=== PATIENT | female | born 1995 | race Two or more races ===

== ENCOUNTER 2020-03-02 11:06 | Inpatient (IN) | payer MEDICAID ==
[2020-03-02] MEDS ORDERED: Lidocaine 1% 50 ML MDV INJECT PRN (13:28)
[2020-03-02] MEDS ORDERED: Carboprost Tromethamine 250 MCG/1 ML Amp IM PRN (13:28)
[2020-03-02] MEDS ORDERED: Water For Irrigation,Sterile 1,000 ML Container IRR PRN (13:28)
[2020-03-02] MEDS ORDERED: Tranexamic Acid 1,000 MG in Sodium Chloride 0.9% 100 ML IV PRN (13:28)
[2020-03-02] MEDS ORDERED: Butorphanol 1 MG/ML SDV IVPUSH PRN (13:28)
[2020-03-02] MEDS ORDERED: Nalbuphine 10 MG/1 ML Vial IVPUSH PRN (13:28)
[2020-03-02] MEDS ORDERED: Sodium Chloride 0.9% 2.5 ML Syringe FLUSH PRN (13:28)
[2020-03-02] MEDS ORDERED: Sodium Chloride 0.9% 10 ML SDV IV PRN (13:28)
[2020-03-02] MEDS ORDERED: Methylergonovine 0.2 MG/1 ML Amp IM PRN (13:28)
[2020-03-02] MEDS ORDERED: Misoprostol 200 MCG Tab PO PRN (13:28)
[2020-03-02] MEDS ORDERED: Sodium Chloride 0.9% 10 ML Syringe FLUSH PRN (13:28)
[2020-03-02] MEDS ORDERED: Oxytocin/0.9 % Sodium Chloride 30 UNIT/500 ML BAG IV SCH (13:30)
[2020-03-02] MEDS ORDERED: Terbutaline 1 MG/ML SDV SUBCUT PRN (14:14)
[2020-03-02] MEDS: Lactated Ringers 1,000 ML IV SCH ×2 (15:15→17:15)
[2020-03-02] MEDS: Misoprostol 25 MCG (1/4 of 100 MCG) Tab VAG PRN ×2 (16:08→22:08)
[2020-03-03] MEDS ORDERED: Witch Hazel Medicated Pads 40/Jar TOP PRN (03:37)
[2020-03-03] MEDS ORDERED: Docusate Sodium 100 MG Cap PO PRN (03:37)
[2020-03-03] MEDS ORDERED: Lanolin 100% Cream 7 GM Tube TOP PRN (03:37)
[2020-03-03] MEDS ORDERED: Benzocaine/Menthol 20%-0.5% Spray 78 GM Cannister TOP PRN (03:37)
[2020-03-03] MEDS ORDERED: Tranexamic Acid 1,000 MG in Sodium Chloride 0.9% 100 ML IV PRN (03:37)
[2020-03-03] MEDS ORDERED: Methylergonovine 0.2 MG/1 ML Amp IM PRN (03:37)
[2020-03-03] MEDS ORDERED: Ibuprofen 400 MG Tab PO PRN (03:37)
[2020-03-03] MEDS ORDERED: Acetaminophen 500 MG Tab PO PRN ×2 (03:37)
[2020-03-03] MEDS ORDERED: Bisacodyl 10 MG Supp RECTAL PRN (03:37)
--- NOTE | 2020-03-03 03:44 | PCM.OPNOTE ---
- General Post-Op/Procedure Note Date of Surgery/Procedure: 03/03/20 Operative Procedure(s): TSVD, repair of vaginal laceration Findings: Liveborn female 9/10 3970 grams, vaginal laceration, placenta spontaneous Schultze intact with 3 vessels. Pre Op Diagnosis: 38 4/7 weeks, PROM with induction Post-Op Diagnosis: Same Anesthesia Technique: Local Primary Surgeon: Sandra Malloy Pathology: none EBL in mLs: 200 Complications: None Known Condition: Good
--- NOTE | 2020-03-03 04:47 | OR ---
SURGEON: Sandra Malloy M.D. DATE OF PROCEDURE: 03/03/2020 PREOPERATIVE DIAGNOSES: 1. A 38-5/7-week intrauterine . 2. Premature rupture of membranes. POSTOPERATIVE DIAGNOSES: 1. A 38-5/7-week intrauterine . 2. Premature rupture of membranes. PROCEDURES: 1. Cytotec induction of labor. 2. Term spontaneous vaginal delivery. 3. Repair of a vaginal laceration. PRIMARY SURGEON: Sandra Malloy M.D. ANESTHESIA: Local. ESTIMATED BLOOD LOSS: Less than 200 mL. FINDINGS: A liveborn male, scores 9 and 10, weighing 3970 g. Placenta spontaneous, Schultze intact, with 3 vessels. A small vaginal laceration was repaired. COMPLICATIONS: None known. DISPOSITION: Mother and baby are in LDR in good condition. BRIEF HISTORY: This is a 24-year-old female, G1, P0. She presents with spontaneous rupture of membranes on 03/01/2020 at approximately noon. She presented to Labor and Delivery. She was confirmed to have spontaneous rupture of membranes. The cervix was closed. She received 2 doses of Cytotec. She was known to be group B strep negative. She remained afebrile throughout labor. She had category I heart tones throughout labor. She progressed to complete. DESCRIPTION OF PROCEDURE: With the patient in dorsal lithotomy position, the patient pushed over a 45- minute time period to a 5+ station, at which time the head was delivered spontaneously and atraumatically over the perineum with support with subsequent delivery of the infant's shoulders and body with minimal difficulty. However, the patient was placed in supine position. Breann maneuver and suprapubic pressure were applied. With this, from head to shoulder, delivery was less than 30 seconds. The was placed on the mother's abdomen and stimulated. The infant was a liveborn male, scores of 9 and 10, weighing 3970 g. After 2 minutes, the cord was doubly clamped and cut. Cord blood was collected for cord ABGs as well as routine cord blood sampling. Pitocin was initiated after delivery of the to assist with delivery of the placenta, which was delivered spontaneously, Schultze intact, with 3 vessels. Upon inspection of the pelvis and perineum, there were no periurethral, cervical, rectal, or perineal lacerations. There was a small vaginal laceration at 6 o'clock. 10 mL of 1% lidocaine was instilled, and 3-0 Vicryl was utilized in a running locked fashion to reapproximate the vaginal tissue. Final sponge, needle, and instrument counts were correct. There were no known complications, and mother and baby remained in LDR in good condition. SANDRA BARAJAS /[id number]
[2020-03-03] MEDS: Ibuprofen 800 MG Tab PO PRN ×2 (05:00→16:02)
[2020-03-04] MEDS: Ibuprofen 800 MG Tab PO PRN (00:17)
--- NOTE | 2020-03-04 13:07 | PCM.PNPP ---
- General Info Date of Service: 03/04/20 Functional Status: Reports: Pain Controlled, Tolerating Diet, Ambulating, Urinating - Review of Systems General: Reports: No Symptoms HEENT: Reports: No Symptoms Pulmonary: Reports: No Symptoms Cardiovascular: Reports: No Symptoms Gastrointestinal: Reports: No Symptoms Genitourinary: Reports: No Symptoms Musculoskeletal: Reports: No Symptoms Skin: Reports: No Symptoms Neurological: Reports: No Symptoms Psychiatric: Reports: No Symptoms - General Info Date of Service: 03/04/20 - Patient Data Vital Signs - Most Recent: Last Vital Signs Temp 36.4 C 03/04/20 08:30 Pulse 60 03/04/20 08:30 Resp 16 03/04/20 08:30 BP 127/69 03/04/20 08:30 Pulse Ox 96 03/04/20 08:30 Weight - Most Recent: 83.007 kg Lab Results - Last 24 Hours: Laboratory Results - last 24 hr 03/04/20 Range/Units 05:50 Hgb 10.2 L (12.0-16.0) g/dL Hct 32.3 L (36.0-46.0) % Med Orders - Current: Current Medications Acetaminophen (Tylenol Extra Strength) 500 mg PO Q4H PRN PRN Reason: Pain Acetaminophen (Tylenol Extra Strength) 1,000 mg PO Q4H PRN PRN Reason: Pain Last Admin: 03/03/20 04:03 Dose: 1,000 mg Documented by: Benzocaine/Menthol (Dermoplast Pain Relief 20%-0.5% [place]) 78 gm TOP ASDIRECTED PRN PRN Reason: Perineal Comfort Measure Last Admin: 03/03/20 04:06 Dose: 1 canister Documented by: Bisacodyl (Dulcolax) 10 mg RECTAL ONETIME PRN PRN Reason: Constipation Docusate Sodium (Colace) 100 mg PO BID PRN PRN Reason: Constipation Last Admin: 03/03/20 04:05 Dose: 100 mg Documented by: Emollient Ointment (Lansinoh Hpa) 0 gm TOP ASDIRECTED PRN PRN Reason: Sore Nipples Last Admin: 03/03/20 04:05 Dose: 7 gm Documented by: Tranexamic Acid 1,000 mg/ (Sodium Chloride) 110 mls @ 660 mls/hr IV ONETIME PRN PRN Reason: Bleeding Ibuprofen (Motrin) 400 mg PO Q4H PRN PRN Reason: Pain Ibuprofen (Motrin) 800 mg PO Q6H PRN PRN Reason: Pain Last Admin: 03/04/20 00:17 Dose: 800 mg Documented by: Methylergonovine Maleate (Methergine) 0.2 mg IM ONETIME PRN PRN Reason: Excessive Vaginal Bleeding Witjorge Lakhaniel (Tucks) 1 pad TOP ASDIRECTED PRN PRN Reason: comfort care Last Admin: 03/03/20 04:06 Dose: 1 tub Documented by: Discontinued Medications Butorphanol Tartrate (Stadol) 1 mg IVPUSH Q1H PRN PRN Reason: Pain Last Admin: 03/02/20 19:38 Dose: 1 mg Documented by: Carboprost Tromethamine (Hemabate Ds) 250 mcg IM ASDIRECTED PRN PRN Reason: Post Hemorrhage Lactated Ringer's (Ringers, Lactated) 1,000 mls @ 150 mls/hr IV ASDIRECTED TIFFANY Last Admin: 03/02/20 17:15 Dose: 125 mls/hr Documented by: Oxytocin/Sodium Chloride (Oxytocin 30 Unit/500 Ml-Ns) 30 unit in 500 mls @ 999 mls/hr IV TITRATE [facility] Last Admin: 03/03/20 02:36 Dose: 999 mls/hr Documented by: Tranexamic Acid 1,000 mg/ (Sodium Chloride) 110 mls @ 660 mls/hr IV ONETIME PRN PRN Reason: Bleeding Lidocaine HCl (Xylocaine 1%) 50 ml INJECT ONETIME PRN PRN Reason: Laceration repair Last Admin: 03/03/20 02:40 Dose: 50 ml Documented by: Methylergonovine Maleate (Methergine) 0.2 mg IM ASDIRECTED PRN PRN Reason: Post Hemorrhage Misoprostol (Cytotec) 200 mcg PO ONETIME PRN PRN Reason: Post Hemorrhage Misoprostol (Cytotec) 25 mcg VAG Q6HR PRN PRN Reason: Cervical Ripening Last Admin: 03/02/20 22:08 Dose: 25 mcg Documented by: Nalbuphine HCl (Nubain) 10 mg IVPUSH Q1H PRN PRN Reason: Pain (severe 7-10) Sodium Chloride (Saline Flush) 10 ml FLUSH ASDIRECTED PRN PRN Reason: Keep Vein Open Sodium Chloride (Saline Flush) 2.5 ml FLUSH ASDIRECTED PRN PRN Reason: Keep Vein Open Sodium Chloride (Normal Saline) 10 ml IV ASDIRECTED PRN PRN Reason: IV Use Sterile Water (Sterile Water For Irrigation) 1,000 ml IRR ASDIRECTED PRN PRN Reason: delivery Terbutaline Sulfate (Brethine) 0.25 mg SUBCUT ASDIRECTED PRN PRN Reason: Tacysystole - Infant Interaction Disposition, : in Room with Family Feeding: Breastfed Infant; Nursed Well Support Person: Significant Other - Recovery Exam Fundal Tone: Firm Fundal Level: 1 Fingerbreadths Below Umbilicus Fundal Placement: Right Lochia Amount: Scant Lochia Color: Rubra/Red Perineum Description: Edematous Other Perinuem Description: Vaginal tear Episiotomy/Laceration: None Bladder Status: Voiding Urinary Elimination: Voided - Exam General: Alert, Oriented Neck: Supple Lungs: Clear to Auscultation, Normal Respiratory Effort Cardiovascular: Regular Rate, Regular Rhythm GI/Abdominal Exam: Normal Bowel Sounds, Soft, Non-Tender. No: No Distention (somewhat distended) Extremities: Normal Inspection, Normal Range of Motion, Non-Tender, No Pedal Edema, Normal Capillary Refill Skin: Warm, Dry, Intact Neurological: No New Focal Deficit Psy/Mental Status: Alert, Normal Affect, Normal Mood - Problem List & Annotations (1) Premature rupture of membranes SNOMED Code(s): 53620235 Code(s): O42.90 - RAVI ROM, 7TH0 BETW RUPT & ONST LABR, UNSP WEEKS OF GEST Status: Acute Current Visit: Yes (2) Term delivered SNOMED Code(s): 21021079, 710893526 Code(s): O80 - ENCOUNTER FOR FULL-TERM UNCOMPLICATED DELIVERY Status: Acute Current Visit: Yes - Problem List Review Problem List Initiated/Reviewed/Updated: Yes - My Orders Last 24 Hours: My Active Orders 03/04/20 12:43 Ready for Discharge [RC] PER UNIT ROUTINE - Assessment Assessment:: PPD#1 after , following induction for prolonged PROM. Afebrile, vitals stable, would like to go home. - Plan Plan:: Discharge instructions reviewed. Dismiss to home, follow up in 4 weeks.
== END 2020-03-04 14:46 | disposition home or self-care (01) | DRG 807 ==
LOC: MW.OBCHECK 11:06 → MW.OB 11:09 → MW.OBCHECK 03-03 02:36 → MW.OB 03-03 02:36 → OBSVTOIN 03-03 02:36 → MW.OB 03-03 06:46
PROVIDERS: ADMIT Obstetrics & Gynecology; ATTEND Obstetrics & Gynecology
PROC: 10E0XZZ Delivery of Products of Conception, External Approach (ICD-10-PCS; principal; 2020-03-03)
PROC: 0HQ9XZZ Repair Perineum Skin, External Approach (ICD-10-PCS; 2020-03-03)
DX: O42.92 Full-term premature rupture of membranes, unspecified as to length of time between rupture and onset of labor (principal); Z37.0 Single live birth; Z3A.38 38 weeks gestation of pregnancy; Z20.828 Contact with and (suspected) exposure to other viral communicable diseases
CPT/HCPCS: 36415; 59025; 59409; 81003; 82803; 84112; 85014; 85018; 85027; 86592; 86850; 86900; 86901; A9270-GY; J0595; J2001; J2590; J7120; U0002

== ENCOUNTER 2020-06-17 21:18 | Emergency (ER) | payer MEDICAID ==
[2020-06-17] MEDS ORDERED: Metoclopramide 10 MG/2 ML SDV ONE (22:11)
[2020-06-17] MEDS ORDERED: Ketorolac 15 MG/ML SDV ONE (22:26)
[2020-06-17] MEDS ORDERED: Ondansetron 4 MG/2 ML SDV ONE (22:42)
[2020-06-17] MEDS ORDERED: Penicillin G Benzathine 1,200,000 Units/2 ML Syringe ONE (22:43)
--- NOTE | 2020-06-18 08:16 | CT ---
Indication: Chronic headache. Family history of brain tumor. Technique: CT of the head without contrast. Coronal and sagittal reformats. Bone and soft tissue windows. Comparison: No prior studies available for comparison at this institution. Findings: No acute intracranial hemorrhage or extra-axial collection. No evidence of acute cortical infarction. No mass effect or midline shift. Normal cerebral volume. The ventricles are normal in size, shape and contour. There is normal hauser and white matter differentiation. The orbital contents are normal. No calvarial fractures. No lytic or sclerotic osseous lesions within the calvarium or skull base. Scalp and other imaged soft tissue structures are normal. Mastoid air cells are clear. Paranasal sinuses are well aerated. 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 Impression: No acute intracranial abnormality. Please note that all CT scans at this facility use dose modulation, iterative reconstruction, and/or weight-based dosing when appropriate to reduce radiation dose to as low as reasonably achievable. Dictated by Dmitry Cottrell MD @ Jun 18 2020 8:09AM Signed by Dr. Dmitry Cottrell @ Jun 18 2020 8:14AM
== END 2020-06-18 00:51 | disposition home or self-care (01) ==
LOC: MW.ED 21:18
DX: J02.0 Streptococcal pharyngitis (principal); R51.9 Headache, unspecified
CPT/HCPCS: 70450; 81025; 87651; 96372; 96374; 96375; 99284; J0561; J1885; J2405; J2765

== ENCOUNTER 2021-03-13 07:09 | Emergency (ER) | payer MEDICAID, OTHER ==
--- NOTE | 2021-03-13 07:43 | EDM.PDOC ---
ED HPI GENERAL MEDICAL PROBLEM - General Chief Complaint: Chest Pain Stated Complaint: SHORTNESS OF BREATH Time Seen by Provider: 03/13/21 07:22 - History of Present Illness INITIAL COMMENTS - FREE TEXT/NARRATIVE: 25-year-old female with covid since the beginning of the month. She had cough and initially fever just at the beginning that abated. Then sore throate started patient saw physician and was put on on amoxicillin steroids. Pt now cough, chest pain with cough, and NULL. Any nose. No exacerbating relieving factors these moderate symptoms. The chest pain she states is more like she is having a difficulty time breathing at deep breath in and then she states that it is also somewhat sharp. No history of blood clots. No recent travel or injury or cancer surgery. No unilateral leg swelling. The patient states that the pain is worse when she coughs. chest Pain Score (Numeric/FACES): 10 head Pain Score (Numeric/FACES): 10 - Related Data Allergies Allergy/AdvReac Type Severity Reaction Status Date / Time No Known Allergies Allergy Verified 03/13/21 07:24 Home Meds: Home Meds Amoxicillin 875 mg PO BID 03/13/21 [History] predniSONE [Prednisone] 20 mg PO DAILY 03/13/21 [History] Past Medical History HEENT History: Reports: Impaired Vision, Other (See Below) Other HEENT History: glasses for both near-sighted and far-sighted vision correction. Gastrointestinal History: Reports: Hemorrhoids Genitourinary History: Reports: Other (See Below) Other Genitourinary History: hx bilateral kidney infection, 2016. 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 Neurological History: Reports: Concussion, Other (See Below) Other Neuro History: "couple of concussions a couple years ago." Psychiatric History: Reports: ADHD, Anxiety, Depression - Infectious Disease History Infectious Disease History: Reports: None - Past Surgical History HEENT Surgical History: Reports: None GI Surgical History: Reports: Appendectomy, Other (See Below) Other GI Surgeries/Procedures: infection and removal on September 24, 2017. Female Surgical History: Reports: None Neurological Surgical History: Reports: None Dermatological Surgical History: Reports: None Social & Family History - Family History Family Medical History: No Pertinent Family History - Caffeine Use Caffeine Use: Reports: None Caffeine Use Comment: every once in a while - Recreational Drug Use Recreational Drug Use: No ED ROS GENERAL - Review of Systems Review Of Systems: Comprehensive ROS is negative, except as noted in HPI. ED EXAM, GENERAL - Physical Exam Exam: See Below Free Text/Narrative:: CONSTITUTIONAL: well appearing in no acute distress SKIN: Warm, dry, and intact without rash HENT: Normocephalic, atraumatic. Oropharynx without evidence of peritonsillar abscess. Minor erythema PULMONARY: clear to ausculation bilaterally. No rales, rhonchi, wheezing CARDIOVASCULAR: regular rate, No murmur, rubs, or gallops GASTROINTESTINAL: soft, nondistended, nontender NEUROLOGIC: normal speech, II-XII intact. light touch/5/5 power equal and symmetric in upper and lower extremities without deficit MUSCULOSKELETAL: no gross deformities, atraumatic PSYCHIATRIC: normal mood and affect #1 Interpretation Time: 07:13 EKG Interpretation Comments: 83, nsr, nonspecific st/t changes Course - Vital Signs Text/Narrative:: Differential Diagnosis: Pneumonia, pneumothorax, PE, myocarditis, Covid, other Patient presents as outlined above. Chest x-ray is negative for pneumonia. D- dimer is negative and there is low risk for PE and no evidence of myocarditis. The remainder the work-up is effectively unremarkable. Supportive treatment return precautions and PCP follow-up. Last Recorded V/S: Last Vital Signs Temp 36.3 C 03/13/21 07:21 Pulse 99 03/13/21 07:21 Resp 24 H 03/13/21 07:21 BP 139/82 03/13/21 07:21 Pulse Ox 100 03/13/21 07:21 - Orders/Labs/Meds Labs: Laboratory Tests 03/13/21 03/13/21 03/13/21 Range/Units 08:21 08:21 08:21 WBC 15.62 H (4.0-11.0) K/uL RBC 4.35 (4.30-5.90) M/uL Hgb 12.7 (12.0-16.0) g/dL Hct 37.0 (36.0-46.0) % MCV 85.1 (80.0-98.0) fL MCH 29.2 (27.0-32.0) pg MCHC 34.3 (31.0-37.0) g/dL RDW Std Deviation 38.6 (28.0-62.0) fl RDW Coeff of Magy 13 (11.0-15.0) % Plt Count 345 (150-400) K/uL MPV 10.00 (7.40-12.00) fL Neut % (Auto) 83.5 H (48.0-80.0) % Lymph % (Auto) 11.4 L (16.0-40.0) % [place] % (Auto) 4.6 (0.0-15.0) % Eos % (Auto) 0.3 (0.0-7.0) % Baso % (Auto) 0.2 (0.0-1.5) % Neut # (Auto) 13.0 H (1.4-5.7) K/uL Lymph # (Auto) 1.8 (0.6-2.4) K/uL [place] # (Auto) 0.7 (0.0-0.8) K/uL Eos # (Auto) 0.1 (0.0-0.7) K/uL Baso # (Auto) 0.0 (0.0-0.1) K/uL Nucleated RBC % 0.0 /100WBC Nucleated RBCs # 0 K/uL D-Dimer, Quantitative 0.25 (0.0-0.50) mg/L FEU Sodium 139 (136-145) mmol/L Potassium 3.7 (3.5-5.1) mmol/L Chloride 104 (98-107) mmol/L Carbon Dioxide 27.0 (21.0-32.0) mmol/L BUN 10 (7.0-18.0) mg/dL Creatinine 0.8 (0.6-1.0) mg/dL Est Cr Clr Drug Dosing 94.44 mL/min Estimated GFR (MDRD) > 60.0 ml/min Glucose 101 (74-106) mg/dL Calcium 9.1 (8.5-10.1) mg/dL Total Bilirubin 0.3 (0.2-1.0) mg/dL AST 15 (15-37) IU/L ALT 14 (14-63) IU/L Alkaline Phosphatase 87 (46-116) U/L Troponin I < 0.050 (0.000-0.056) ng/mL Total Protein 7.4 (6.4-8.2) g/dL Albumin 3.4 (3.4-5.0) g/dL Globulin 4.0 (2.6-4.0) g/dL Albumin/Globulin Ratio 0.9 (0.9-1.6) Departure - Departure Time of Disposition: 09:58 Disposition: Home, Self-Care 01 Condition: Good Clinical Impression: Viral illness - Discharge Information Instructions: Viral Illness, Adult Referrals: PCP,None [Primary Care Provider] - Forms: ED Department Discharge Additional Instructions: Return for increased shortness of breath, pain, change or worsening condition or lack of improvement. Follow-up with primary care doctor in the next several days for reevaluation. The following information is given to patients seen in the emergency department who are being discharged to home. This information is to outline your options for follow-up care. We provide all patients seen in our emergency department with a follow-up referral. The need for follow-up, as well as the timing and circumstances, are variable depending upon the specifics of your emergency department visit. If you don't have a primary care physician on staff, we will provide you with a referral. We always advise you to contact your personal physician following an emergency department visit to inform them of the circumstance of the visit and for follow-up with them and/or the need for any referrals to a consulting specialist. The emergency department will also refer you to a specialist when appropriate. This referral assures that you have the opportunity for follow-up care with a specialist. All of these measure are taken in an effort to provide you with optimal care, which includes your follow-up. Primary care clinics in the area: [facility] [address] [place] [id number] [facility] [address] [place] [address] Under all circumstances we always encourage you to contact your private physician who remains a resource for coordinating your care. When calling for follow-up care, please make the office aware that this follow-up is from your recent emergency room visit. If for any reason you are refused follow-up, please contact the [facility] Emergency Department at and asked to speak to the emergency department charge nurse. Sepsis Event Note (ED) - Evaluation Sepsis Screening Result: No Definite Risk - Focused Exam Vital Signs: Vital Signs Temp Pulse Resp BP Pulse Ox 03/13/21 07:21 36.3 C 99 24 H 139/82 100
--- NOTE | 2021-03-13 08:46 | CR ---
Indication: Chest Pain Comparison: None available. Technique: Single AP view chest Findings: There is no focal consolidation, effusion, or pneumothorax. The cardiomediastinal silhouette is within normal limits. The bony thorax is grossly intact. Impression: No acute cardiopulmonary abnormality. Dictated by Krzysztof Bhagat MD @ 03/13/2021 8:44:59 AM (Electronically Signed)
[2021-03-13 09:22] LABS: BLOOD UREA NITROGEN,BUN 10 mg/dL (7.0-18.0); CHLORIDE,CL 104 mmol/L (98-107); GLUCOSE RANDOM 101 mg/dL (74-106); POTASSIUM,K 3.7 mmol/L (3.5-5.1); SODIUM,NA 139 mmol/L (136-145)
== END 2021-03-13 10:18 | disposition home or self-care (01) ==
LOC: MW.ED 07:09
DX: B34.9 Viral infection, unspecified (principal)
CPT/HCPCS: 36415; 71045; 71045-26; 80053; 84484; 85025; 85379; 93005; 99285-25

== ENCOUNTER 2021-10-14 20:02 | Emergency (ER) | payer BC ==
[2021-10-14 21:51] LABS: CORONAVIRUS COVID-19 NAA POSITIVE (NEGATIVE); INFLUENZA A NAA NEGATIVE (NEGATIVE); INFLUENZA B NAA NEGATIVE (NEGATIVE)
== END 2021-10-14 23:04 | disposition home or self-care (01) ==
LOC: MW.ED 20:02
DX: U07.1 COVID-19 (principal); Z90.49 Acquired absence of other specified parts of digestive tract
CPT/HCPCS: 0240U; 99284; 99282

== ENCOUNTER 2021-10-16 09:27 | Emergency (ER) | payer BC ==
[2021-10-16] MEDS: Sodium Chloride 0.9% 1,000 ML IV ONE (10:17)
[2021-10-16] MEDS: Acetaminophen 325 MG Tab PO ONE (10:17)
[2021-10-16] MEDS: Prochlorperazine 10 MG/2 ML SDV IVPUSH ONE (10:18)
[2021-10-16 10:32] LABS: CARBON DIOXIDE,CO2 21.4 mmol/L (21.0-32.0); POTASSIUM,K 3.5 mmol/L (3.5-5.1)
[2021-10-16] MEDS: Prochlorperazine 10 MG in Sodium Chloride 0.9% 50 ML IV ONE (11:53)
== END 2021-10-16 12:19 | disposition home or self-care (01) ==
LOC: MW.ED 09:27
DX: U07.1 COVID-19 (principal)
CPT/HCPCS: 36415; 80053; 85025; 93005; 96361; 96374; 99285; A9270; J0780; J7030; 93010; 99284

== ENCOUNTER 2021-10-31 10:03 | Emergency (ER) | payer BC ==
[2021-10-31 11:33] LABS: CARBON DIOXIDE,CO2 25.6 mmol/L (21.0-32.0); POTASSIUM,K 4.1 mmol/L (3.5-5.1)
== END 2021-10-31 13:09 | disposition home or self-care (01) ==
LOC: MW.ED 10:03
DX: O45.00 Premature separation of placenta with coagulation defect, unspecified (principal); Z3A.15 15 weeks gestation of pregnancy; Z79.899 Other long term (current) drug therapy
CPT/HCPCS: 36415; 76801; 76801-26; 80053; 81001; 84702; 85025; 86900; 86901; 99284

== ENCOUNTER 2021-11-15 18:40 | Emergency (ER) | payer BC ==
[2021-11-15 20:53] LABS: CARBON DIOXIDE,CO2 26.7 mmol/L (21.0-32.0)
== END 2021-11-15 22:27 | disposition home or self-care (01) ==
LOC: MW.ED 18:40
DX: O99.891 Other specified diseases and conditions complicating pregnancy (principal); R10.9 Unspecified abdominal pain; Z3A.17 17 weeks gestation of pregnancy; Z86.16 Personal history of COVID-19
CPT/HCPCS: 36415; 76815; 76815-26; 80053; 81003; 83690; 84702; 85025; 86900; 86901; 99284

== ENCOUNTER 2022-04-08 18:54 | Observation (INO) | payer BC ==
[2022-04-08] MEDS ORDERED: Lactated Ringers 1,000 ML IV ONE (21:00)
[2022-04-08] MEDS ORDERED: Acetaminophen 500 MG Tab PO ONE (21:00)
[2022-04-09] MEDS ORDERED: Sodium Chloride 0.9% 10 ML Syringe FLUSH PRN (04:18)
[2022-04-09] MEDS ORDERED: Butorphanol 1 MG/ML SDV IVPUSH PRN (04:18)
[2022-04-09] MEDS ORDERED: Tranexamic Acid 1,000 MG in Sodium Chloride 0.9% 100 ML IV PRN (04:18)
[2022-04-09] MEDS ORDERED: Water For Irrigation,Sterile 1,000 ML Container IRR PRN (04:18)
[2022-04-09] MEDS ORDERED: Methylergonovine 0.2 MG/1 ML Amp IM PRN (04:18)
[2022-04-09] MEDS ORDERED: Sodium Chloride 0.9% 2.5 ML Syringe FLUSH PRN (04:18)
[2022-04-09] MEDS ORDERED: Lidocaine 1% 50 ML MDV INJECT PRN (04:18)
[2022-04-09] MEDS ORDERED: Misoprostol 200 MCG Tab PO PRN (04:18)
[2022-04-09] MEDS ORDERED: Carboprost Tromethamine 250 MCG/1 ML Amp IM PRN (04:18)
[2022-04-09] MEDS ORDERED: Sodium Chloride 0.9% 20 ML SDV IV PRN (04:18)
[2022-04-09] MEDS ORDERED: Lactated Ringers 1,000 ML IV SCH (04:30)
[2022-04-09] MEDS ORDERED: Oxytocin/0.9 % Sodium Chloride 30 UNIT/500 ML BAG IV SCH (04:30)
== END 2022-04-09 13:40 | disposition home or self-care (01) ==
LOC: MW.OB 18:54 → MW.OBCHECK 18:54 → MW.OB 19:13
PROVIDERS: ADMIT Obstetrics & Gynecology; ATTEND Obstetrics & Gynecology
DX: O99.891 Other specified diseases and conditions complicating pregnancy (principal); M54.9 Dorsalgia, unspecified; O99.343 Other mental disorders complicating pregnancy, third trimester; F41.9 Anxiety disorder, unspecified; F32.A Depression, unspecified; U07.1 COVID-19; Z3A.37 37 weeks gestation of pregnancy
CPT/HCPCS: 36415; 59025; 85027; 86592; 86850; 86900; 86901; 87635; 96374; A9270; G0378; J0595; J7120; U0002

== ENCOUNTER 2022-04-09 23:02 | Inpatient (IN) | payer BC ==
[2022-04-09] MEDS ORDERED: Carboprost Tromethamine 250 MCG/1 ML Amp IM PRN (23:26)
[2022-04-09] MEDS ORDERED: Lidocaine 1% 50 ML MDV INJECT PRN (23:26)
[2022-04-09] MEDS ORDERED: Butorphanol 1 MG/ML SDV IVPUSH PRN (23:26)
[2022-04-09] MEDS ORDERED: Sodium Chloride 0.9% 2.5 ML Syringe FLUSH PRN (23:26)
[2022-04-09] MEDS ORDERED: Terbutaline 1 MG/ML SDV SUBCUT PRN (23:26)
[2022-04-09] MEDS ORDERED: Sodium Chloride 0.9% 10 ML Syringe FLUSH PRN (23:26)
[2022-04-09] MEDS ORDERED: Misoprostol 200 MCG Tab PO PRN (23:26)
[2022-04-09] MEDS ORDERED: Misoprostol 25 MCG (1/4 of 100 MCG) Tab VAG PRN ×2 (23:26)
[2022-04-09] MEDS ORDERED: Methylergonovine 0.2 MG/1 ML Amp IM PRN (23:26)
[2022-04-09] MEDS ORDERED: Sodium Chloride 0.9% 20 ML SDV IV PRN (23:26)
[2022-04-09] MEDS ORDERED: Tranexamic Acid 1,000 MG in Sodium Chloride 0.9% 100 ML IV PRN (23:26)
[2022-04-09] MEDS ORDERED: Water For Irrigation,Sterile 1,000 ML Container IRR PRN (23:26)
[2022-04-09] MEDS ORDERED: Oxytocin/0.9 % Sodium Chloride 30 UNIT/500 ML BAG IV SCH ×2 (23:30)
[2022-04-09] MEDS ORDERED: Lactated Ringers 1,000 ML IV SCH (23:30)
[2022-04-10] MEDS ORDERED: oxyCODONE 5 MG Tab PO PRN (02:12)
[2022-04-10] MEDS ORDERED: Ibuprofen 800 MG Tab PO PRN (02:12)
[2022-04-10] MEDS ORDERED: Docusate Sodium 100 MG Cap PO PRN (02:12)
[2022-04-10] MEDS ORDERED: Witch Hazel Medicated Pads 40/Jar TOP PRN (02:12)
[2022-04-10] MEDS ORDERED: Benzocaine/Menthol 20%-0.5% Spray 78 GM Cannister TOP PRN (02:12)
[2022-04-10] MEDS ORDERED: Ibuprofen 400 MG Tab PO PRN (02:12)
[2022-04-10] MEDS ORDERED: Bisacodyl 10 MG Supp RECTAL PRN (02:12)
[2022-04-10] MEDS ORDERED: Acetaminophen 500 MG Tab PO PRN (02:12)
[2022-04-10] MEDS ORDERED: Lanolin 100% Cream 7 GM Tube TOP PRN (02:12)
[2022-04-10] MEDS: Acetaminophen 500 MG Tab PO PRN ×2 (04:55→13:21)
== END 2022-04-11 17:27 | disposition home or self-care (01) | DRG 560 ==
LOC: MW.OB 23:02 → MW.OBCHECK 23:02 → MW.OB 23:26 → MW.OBCHECK 23:26 → OBSVTOIN 04-10 01:57 → MW.OB 04-10 04:19
PROVIDERS: ADMIT Obstetrics & Gynecology; ATTEND Obstetrics & Gynecology
PROC: 10E0XZZ Delivery of Products of Conception, External Approach (ICD-10-PCS; principal; 2022-04-10)
PROC: 10907ZC Drainage of Amniotic Fluid, Therapeutic from Products of Conception, Via Natural or Artificial Opening (ICD-10-PCS; 2022-04-10)
DX: O99.344 Other mental disorders complicating childbirth (principal); F41.9 Anxiety disorder, unspecified; F32.A Depression, unspecified; O98.52 Other viral diseases complicating childbirth; U07.1 COVID-19; Z37.0 Single live birth; Z3A.37 37 weeks gestation of pregnancy
CPT/HCPCS: 36415; 59025; 59409; 82803; 85014; 85018; 85027; 86592; 86850; 86900; 86901; A9270-GY; J0595

== ENCOUNTER 2022-08-05 17:20 | Emergency (ER) | payer BC | END 2022-08-05 19:42 | disposition home or self-care (01) | LOC: MW.ED 17:20 | DX: J32.9 Chronic sinusitis, unspecified (principal); B96.89 Other specified bacterial agents as the cause of diseases classified elsewhere; Z86.16 Personal history of COVID-19 | CPT/HCPCS: 87070; 87880-QW; 99282; 99283 ==

== ENCOUNTER 2022-08-22 20:46 | Emergency (ER) | payer BC ==
[2022-08-22] MEDS ORDERED: Sodium Chloride 0.9% 1,000 ML IV ONE (21:06)
[2022-08-22] MEDS ORDERED: Metoclopramide 10 MG/2 ML SDV IVPUSH ONE (21:12)
[2022-08-22] MEDS ORDERED: Ketorolac 30 MG/ML SDV IVPUSH ONE (21:12)
[2022-08-22] MEDS ORDERED: diphenhydrAMINE 50 MG/ML SDV IVPUSH ONE (21:12)
[2022-08-22 21:34] LABS: HEMATOCRIT 38.5 % (36.0-46.0); HEMOGLOBIN 13.6 g/dL (12.0-16.0); MEAN CORPUSCULAR HEMOGLOBIN 29.6 pg (27.0-32.0); MEAN CORPUSCULAR HGB CONC 35.3 g/dL (31.0-37.0); MEAN CORPUSCULAR VOLUME 83.9 fL (80.0-98.0); PLATELET COUNT,PLT 368 K/uL (150-400); RED BLOOD CELL COUNT 4.59 M/uL (4.30-5.90); WHITE BLOOD CELL COUNT,WBC 12.22 K/uL (4.0-11.0)
[2022-08-22 22:04] LABS: ALBUMIN 3.8 g/dL (3.4-5.0); BILIRUBIN TOTAL 0.3 mg/dL (0.2-1.0); CALCIUM 8.6 mg/dL (8.5-10.1); CARBON DIOXIDE,CO2 23.6 mmol/L (21.0-32.0); CREATININE 0.7 mg/dL (0.6-1.0); EST CRCL DRUG DOSING (CG) 107.01 mL/min; MAGNESIUM 2.1 mg/dL (1.8-2.4); POTASSIUM,K 3.5 mmol/L (3.5-5.1); PROTEIN TOTAL,TP 7.5 g/dL (6.4-8.2); TSH ULTRASENSITIVE 6.43 uIU/mL (0.36-3.74)
[2022-08-22 22:07] LABS: LYMPHOCYTES ABSOLUTE MAN 4.4 (0.6-2.4); LYMPHOCYTES PERCENT MAN 36 % (16.0-40.0); SEG NEUTROPHILS ABSOLUTE MAN 7.7 (1.4-5.7); SEG NEUTROPHILS PERCENT MAN 63 % (48.0-80.0)
[2022-08-22 22:08] LABS: MONOCYTES ABSOLUTE MAN 0.1 (0.0-0.8); MONOCYTES PERCENT MAN 1 % (0.0-15.0); NRBC ABSOLUTE 1 K/uL
[2022-08-22 22:28] LABS: CORONAVIRUS COVID-19 NAA NEGATIVE (NEGATIVE); INFLUENZA A NAA NEGATIVE (NEGATIVE); INFLUENZA B NAA NEGATIVE (NEGATIVE)
[2022-08-22 22:30] LABS: T4 FREE 0.79 ng/dL (0.76-1.46)
== END 2022-08-22 23:08 | disposition home or self-care (01) ==
LOC: MW.ED 20:46
DX: O99.891 Other specified diseases and conditions complicating pregnancy (principal); R51.9 Headache, unspecified; R42 Dizziness and giddiness; H53.8 Other visual disturbances; Z86.16 Personal history of COVID-19; Z20.822 Contact with and (suspected) exposure to COVID-19
CPT/HCPCS: 0240U; 36415; 80053; 83735; 84439; 84443; 84702; 84703; 85025; 93005; 96361; 96374; 96375; 99284; J1200; J1885; J2765; J7030

== ENCOUNTER 2022-09-13 14:11 | Emergency (ER) | payer BC, MEDICAID ==
[2022-09-13] MEDS ORDERED: Sodium Chloride 0.9% 1,000 ML IV ONE (15:20)
[2022-09-13] MEDS ORDERED: Sodium Chloride 0.9% 2.5 ML Syringe FLUSH PRN (15:20)
[2022-09-13] MEDS ORDERED: Sodium Chloride 0.9% 10 ML Syringe FLUSH PRN (15:20)
[2022-09-13] MEDS ORDERED: Ondansetron 4 MG/2 ML SDV IVPUSH ONE (15:21)
[2022-09-13] MEDS ORDERED: Ketorolac 30 MG/ML SDV IVPUSH ONE (15:21)
[2022-09-13 15:50] LABS: BASOPHILS PERCENT AUTO 0.2 % (0.0-1.5); EOSINOPHILS ABSOLUTE AUTO 0.1 K/uL (0.0-0.7); EOSINOPHILS PERCENT AUTO 0.6 % (0.0-7.0); HEMATOCRIT 39.7 % (36.0-46.0); HEMOGLOBIN 13.9 g/dL (12.0-16.0); LYMPHOCYTES ABSOLUTE AUTO 1.9 K/uL (0.6-2.4); LYMPHOCYTES PERCENT AUTO 14.6 % (16.0-40.0); MEAN CORPUSCULAR HEMOGLOBIN 29.6 pg (27.0-32.0); MEAN CORPUSCULAR VOLUME 84.5 fL (80.0-98.0); MONOCYTES ABSOLUTE AUTO 0.5 K/uL (0.0-0.8); MONOCYTES PERCENT AUTO 4.2 % (0.0-15.0); NEUTROPHILS ABSOLUTE AUTO 10.2 K/uL (1.4-5.7); NEUTROPHILS PERCENT AUTO 80.4 % (48.0-80.0); NRBC ABSOLUTE 0 K/uL; PLATELET COUNT,PLT 355 K/uL (150-400); WHITE BLOOD CELL COUNT,WBC 12.71 K/uL (4.0-11.0)
[2022-09-13] MEDS ORDERED: Iopamidol 755 MG/ML 500 ML Multipack Bottle IVPUSH ONE (16:10)
[2022-09-13 16:47] LABS: CALCIUM 8.6 mg/dL (8.5-10.1); CARBON DIOXIDE,CO2 27.1 mmol/L (21.0-32.0); CREATININE 0.9 mg/dL (0.6-1.0); EST CRCL DRUG DOSING (CG) 83.23 mL/min; POTASSIUM,K 3.6 mmol/L (3.5-5.1)
== END 2022-09-13 18:12 | disposition home or self-care (01) ==
LOC: MW.ED 14:11
DX: R51.9 Headache, unspecified (principal); R42 Dizziness and giddiness; H53.2 Diplopia; E66.9 Obesity, unspecified; Z68.24 Body mass index [BMI] 24.0-24.9, adult; Z86.16 Personal history of COVID-19
CPT/HCPCS: 36415; 70496; 80048; 84702; 85025; 96361; 96374; 96375; 99284; J1885; J2405; J3490; J7030; Q9967

== ENCOUNTER 2022-09-14 14:53 | Emergency (ER) | payer MEDICAID ==
[2022-09-14] MEDS ORDERED: Bupivacaine 0.5% 10 ML SDV INJECT ONE (15:22)
[2022-09-14] MEDS ORDERED: Lidocaine 1% 5 ML VIAL INJECT ONE (15:22)
== END 2022-09-14 17:01 | disposition home or self-care (01) ==
LOC: MW.ED 14:53
DX: R51.9 Headache, unspecified (principal); M54.2 Cervicalgia; Z86.16 Personal history of COVID-19
CPT/HCPCS: 20552; 99283; J3490

== ENCOUNTER 2023-07-02 23:09 | Emergency (ER) | payer BC ==
[2023-07-02 23:50] LABS: BASOPHILS ABSOLUTE AUTO 0.04 K/uL (0.00-0.20); BASOPHILS PERCENT AUTO 0.4 % (0.0-1.0); EOSINOPHILS ABSOLUTE AUTO 0.17 K/uL (0.00-0.45); EOSINOPHILS PERCENT AUTO 1.7 % (0.0-6.0); HEMATOCRIT 39.6 % (37.0-47.0); HEMOGLOBIN 13.9 g/dL (12.0-16.0); IMMATURE GRAN ABSOLUTE AUTO 0.01 K/uL (0.00-0.05); IMMATURE GRAN PERCENT AUTO 0.1 % (0.0-0.4); LYMPHOCYTES ABSOLUTE AUTO 2.71 K/uL (1.00-4.80); LYMPHOCYTES PERCENT AUTO 27.3 % (24.0-44.0); MEAN CORPUSCULAR HEMOGLOBIN 29.6 pg (28.0-32.0); MEAN CORPUSCULAR HGB CONC 35.1 g/dL (32.0-36.0); MEAN CORPUSCULAR VOLUME 84.3 fL (83.0-99.0); MEAN PLATELET VOLUME 10.1 fL (9.4-12.3); MONOCYTES ABSOLUTE AUTO 0.63 K/uL (0.00-0.80); MONOCYTES PERCENT AUTO 6.3 % (0.0-8.0); NEUTROPHILS ABSOLUTE AUTO 6.38 K/uL (1.80-7.70); NEUTROPHILS PERCENT AUTO 64.2 % (41.0-71.0); PLATELET COUNT,PLT 307 K/uL (150-400); WHITE BLOOD CELL COUNT,WBC 9.94 K/uL (3.9-11.3)
[2023-07-03 00:13] LABS: INR 1.06 (0.86-1.11); PTT,PARTIAL THROMBOPLSTIN TIME 28.7 SEC (23.9-30.7)
[2023-07-03 00:16] LABS: D-DIMER QUANTITATIVE < 0.19 mg/L FEU (0.00-0.50)
[2023-07-03 00:24] LABS: A/G RATIO 1.1 (0.9-1.6); ALANINE AMINOTRANSFERASE,ALT 13 IU/L (14-63); ALKALINE PHOSPHATASE 114 U/L (46-116); ASPARTATE AMNIOTRANSFERASE,AST 15 IU/L (15-37); BILIRUBIN TOTAL 0.3 mg/dL (0.2-1.0); BLOOD UREA NITROGEN,BUN 11 mg/dL (7.0-18.0); CALCIUM 8.7 mg/dL (8.5-10.1); CARBON DIOXIDE,CO2 26.7 mmol/L (21.0-32.0); CHLORIDE,CL 101 mmol/L (98-107); GLUCOSE RANDOM 98 mg/dL (74-106); MAGNESIUM 2.1 mg/dL (1.8-2.4); POTASSIUM,K 3.5 mmol/L (3.5-5.1); PROTEIN TOTAL,TP 7.8 g/dL (6.4-8.2); SODIUM,NA 139 mmol/L (136-145); TSH ULTRASENSITIVE 5.54 uIU/mL (0.36-3.74)
[2023-07-03 00:25] LABS: ESTIMATED GFR 80 mL/min (>60)
[2023-07-03 00:48] LABS: T4 FREE 1.02 ng/dL (0.76-1.46)
== END 2023-07-03 01:01 | disposition home or self-care (01) ==
LOC: MW.ED 23:09
DX: R55 Syncope and collapse (principal); Z86.16 Personal history of COVID-19; Z75.8 Other problems related to medical facilities and other health care
CPT/HCPCS: 36415; 80053; 83735; 84439; 84443; 84484; 84703; 85025; 85379; 85610; 85730; 93005; 93010; 99282; 99285

== ENCOUNTER 2023-08-01 19:12 | Emergency (ER) | payer BC ==
[2023-08-01] MEDS: diphenhydrAMINE 50 MG/ML SDV IVPUSH ONE (20:07)
[2023-08-01] MEDS: Ketorolac 30 MG/ML SDV IVPUSH ONE (20:07)
[2023-08-01] MEDS: Famotidine 20 MG/2 ML SDV IVPUSH ONE (20:07)
[2023-08-01] MEDS: Metoclopramide 10 MG/2 ML SDV IVPUSH ONE (20:07)
[2023-08-01] MEDS: Sodium Chloride 0.9% 1,000 ML IV ONE (20:07)
[2023-08-01] MEDS: Sodium Chloride 0.9% 10 ML Syringe FLUSH PRN (20:08)
[2023-08-01] MEDS: Sodium Chloride 0.9% 2.5 ML Syringe FLUSH PRN (20:08)
[2023-08-01 20:16] LABS: BASOPHILS ABSOLUTE AUTO 0.05 K/uL (0.00-0.20); BASOPHILS PERCENT AUTO 0.5 % (0.0-1.0); EOSINOPHILS ABSOLUTE AUTO 0.15 K/uL (0.00-0.45); EOSINOPHILS PERCENT AUTO 1.5 % (0.0-6.0); HEMATOCRIT 42.8 % (37.0-47.0); IMMATURE GRAN ABSOLUTE AUTO 0.03 K/uL (0.00-0.05); IMMATURE GRAN PERCENT AUTO 0.3 % (0.0-0.4); LYMPHOCYTES ABSOLUTE AUTO 2.14 K/uL (1.00-4.80); LYMPHOCYTES PERCENT AUTO 21.9 % (24.0-44.0); MEAN CORPUSCULAR HEMOGLOBIN 29.7 pg (28.0-32.0); MEAN CORPUSCULAR VOLUME 84.8 fL (83.0-99.0); MEAN PLATELET VOLUME 10.1 fL (9.4-12.3); MONOCYTES ABSOLUTE AUTO 0.47 K/uL (0.00-0.80); MONOCYTES PERCENT AUTO 4.8 % (0.0-8.0); NEUTROPHILS ABSOLUTE AUTO 6.92 K/uL (1.80-7.70); PLATELET COUNT,PLT 340 K/uL (150-400); RED BLOOD CELL COUNT 5.05 M/uL (4.10-5.30); WHITE BLOOD CELL COUNT,WBC 9.76 K/uL (3.9-11.3)
[2023-08-01 20:52] LABS: ALBUMIN 4.1 g/dL (3.4-5.0); BILIRUBIN TOTAL 0.8 mg/dL (0.2-1.0); CALCIUM 9.1 mg/dL (8.5-10.1); CARBON DIOXIDE,CO2 25.8 mmol/L (21.0-32.0); CREATININE 0.9 mg/dL (0.6-1.0); EST CRCL DRUG DOSING (CG) 82.51 mL/min; POTASSIUM,K 3.5 mmol/L (3.5-5.1); PROTEIN TOTAL,TP 8.3 g/dL (6.4-8.2)
[2023-08-01 21:20] LABS: CORONAVIRUS COVID-19 NAA NEGATIVE (NEGATIVE); INFLUENZA A NAA NEGATIVE (NEGATIVE); INFLUENZA B NAA NEGATIVE (NEGATIVE); RESPIRATORY SYNCYTIAL VIR NAA NEGATIVE (NEGATIVE)
[2023-08-01 21:31] LABS: APPEARANCE,URINE CLEAR; BILIRUBIN,URINE NEGATIVE (NEGATIVE); COLOR,URINE YELLOW; GLUCOSE,URINE NEGATIVE (NEGATIVE); KETONES,URINE NEGATIVE (NEGATIVE); LEUKOCYTE ESTERASE,URINE NEGATIVE (NEGATIVE); NITRITE,URINE NEGATIVE (NEGATIVE); OCCULT BLOOD,URINE NEGATIVE (NEGATIVE); PROTEIN,URINE NEGATIVE (NEGATIVE); UROBILINOGEN,URINE 0.2 EU/dL (<2.0)
== END 2023-08-01 22:22 | disposition home or self-care (01) ==
LOC: MW.ED 19:12
DX: K21.9 Gastro-esophageal reflux disease without esophagitis (principal); G43.909 Migraine, unspecified, not intractable, without status migrainosus; R10.2 Pelvic and perineal pain; Z75.8 Other problems related to medical facilities and other health care; Z90.49 Acquired absence of other specified parts of digestive tract
CPT/HCPCS: 0241U; 36415; 80053; 81003; 81025; 83690; 85025; 96361; 96374; 96375; 99284; J1200; J1885; J2765; J3490; J7030

== ENCOUNTER 2023-08-05 16:10 | Emergency (ER) | payer BC ==
[2023-08-05] MEDS: Sodium Chloride 0.9% 1,000 ML IV ONE (16:32)
[2023-08-05 16:47] LABS: BASOPHILS ABSOLUTE AUTO 0.05 K/uL (0.00-0.20); BASOPHILS PERCENT AUTO 0.6 % (0.0-1.0); EOSINOPHILS ABSOLUTE AUTO 0.06 K/uL (0.00-0.45); EOSINOPHILS PERCENT AUTO 0.7 % (0.0-6.0); HEMATOCRIT 40.5 % (37.0-47.0); HEMOGLOBIN 14.3 g/dL (12.0-16.0); IMMATURE GRAN ABSOLUTE AUTO 0.01 K/uL (0.00-0.05); IMMATURE GRAN PERCENT AUTO 0.1 % (0.0-0.4); LYMPHOCYTES ABSOLUTE AUTO 1.99 K/uL (1.00-4.80); LYMPHOCYTES PERCENT AUTO 23.4 % (24.0-44.0); MEAN CORPUSCULAR HEMOGLOBIN 29.7 pg (28.0-32.0); MEAN CORPUSCULAR HGB CONC 35.3 g/dL (32.0-36.0); MEAN PLATELET VOLUME 10.5 fL (9.4-12.3); MONOCYTES ABSOLUTE AUTO 0.64 K/uL (0.00-0.80); MONOCYTES PERCENT AUTO 7.5 % (0.0-8.0); NEUTROPHILS ABSOLUTE AUTO 5.76 K/uL (1.80-7.70); NEUTROPHILS PERCENT AUTO 67.7 % (41.0-71.0); PLATELET COUNT,PLT 335 K/uL (150-400); RED BLOOD CELL COUNT 4.82 M/uL (4.10-5.30); WHITE BLOOD CELL COUNT,WBC 8.51 K/uL (3.9-11.3)
[2023-08-05 17:00] LABS: INR 1.08 (0.86-1.11); PTT,PARTIAL THROMBOPLSTIN TIME 26.9 SEC (23.9-30.7)
[2023-08-05 17:08] LABS: D-DIMER QUANTITATIVE < 0.19 mg/L FEU (0.00-0.50)
[2023-08-05 17:20] LABS: ALANINE AMINOTRANSFERASE,ALT 15 IU/L (14-63); ALBUMIN 4.3 g/dL (3.4-5.0); ALKALINE PHOSPHATASE 109 U/L (46-116); ASPARTATE AMNIOTRANSFERASE,AST 18 IU/L (15-37); BILIRUBIN TOTAL 0.5 mg/dL (0.2-1.0); BLOOD UREA NITROGEN,BUN 8 mg/dL (7.0-18.0); CALCIUM 9.1 mg/dL (8.5-10.1); CARBON DIOXIDE,CO2 26.3 mmol/L (21.0-32.0); CHLORIDE,CL 102 mmol/L (98-107); CREATININE 0.9 mg/dL (0.6-1.0); ESTIMATED GFR 91 mL/min (>60); ETHANOL BLOOD MEDICAL < 3.0 mg/dL; GLUCOSE RANDOM 107 mg/dL (74-106); POTASSIUM,K 3.6 mmol/L (3.5-5.1); PROTEIN TOTAL,TP 8.7 g/dL (6.4-8.2); SODIUM,NA 140 mmol/L (136-145); TSH ULTRASENSITIVE 2.32 uIU/mL (0.36-3.74)
[2023-08-05] MEDS: Ketorolac 30 MG/ML SDV IVPUSH ONE (17:32)
[2023-08-05] MEDS: Diazepam 5 MG Tab PO ONE ×2 (19:40→20:32)
[2023-08-05] MEDS: Iopamidol 755 MG/ML 500 ML Multipack Bottle IVPUSH ONE (20:06)
== END 2023-08-05 20:35 | disposition home or self-care (01) ==
LOC: MW.ED 16:10
DX: R00.2 Palpitations (principal); R06.00 Dyspnea, unspecified; Z79.899 Other long term (current) drug therapy; Z75.8 Other problems related to medical facilities and other health care
CPT/HCPCS: 36415; 70360; 70491; 80053; 80307; 83735; 84443; 84484; 84703; 85025; 85379; 85610; 85730; 93005; 96361; 96374; 96375; 96376; 99285; A9270; J1885; J3360; J7030; Q9967; 93010; 99284

== ENCOUNTER 2023-11-08 14:12 | Emergency (ER) | payer BC ==
[2023-11-08] MEDS: Sodium Chloride 0.9% 2.5 ML Syringe FLUSH PRN (15:20)
[2023-11-08] MEDS: Sodium Chloride 0.9% 10 ML Syringe FLUSH PRN (15:20)
[2023-11-08] MEDS: Sodium Chloride 0.9% 1,000 ML IV ONE (15:20)
[2023-11-08 15:27] LABS: BASOPHILS ABSOLUTE AUTO 0.03 K/uL (0.00-0.20); BASOPHILS PERCENT AUTO 0.3 % (0.0-1.0); EOSINOPHILS ABSOLUTE AUTO 0.17 K/uL (0.00-0.45); EOSINOPHILS PERCENT AUTO 1.8 % (0.0-6.0); HEMATOCRIT 38.7 % (37.0-47.0); HEMOGLOBIN 13.4 g/dL (12.0-16.0); IMMATURE GRAN ABSOLUTE AUTO 0.03 K/uL (0.00-0.05); IMMATURE GRAN PERCENT AUTO 0.3 % (0.0-0.4); LYMPHOCYTES ABSOLUTE AUTO 1.81 K/uL (1.00-4.80); LYMPHOCYTES PERCENT AUTO 18.9 % (24.0-44.0); MEAN CORPUSCULAR HEMOGLOBIN 28.9 pg (28.0-32.0); MEAN CORPUSCULAR HGB CONC 34.6 g/dL (32.0-36.0); MEAN CORPUSCULAR VOLUME 83.6 fL (83.0-99.0); MEAN PLATELET VOLUME 9.7 fL (9.4-12.3); MONOCYTES ABSOLUTE AUTO 0.59 K/uL (0.00-0.80); MONOCYTES PERCENT AUTO 6.2 % (0.0-8.0); NEUTROPHILS ABSOLUTE AUTO 6.94 K/uL (1.80-7.70); NEUTROPHILS PERCENT AUTO 72.5 % (41.0-71.0); PLATELET COUNT,PLT 318 K/uL (150-400); RED BLOOD CELL COUNT 4.63 M/uL (4.10-5.30); WHITE BLOOD CELL COUNT,WBC 9.57 K/uL (3.9-11.3)
[2023-11-08 15:49] LABS: A/G RATIO 1.1 (0.9-1.6); ALBUMIN 3.9 g/dL (3.4-5.0); BILIRUBIN TOTAL 0.5 mg/dL (0.2-1.0); CARBON DIOXIDE,CO2 30.1 mmol/L (21.0-32.0); CREATININE 0.8 mg/dL (0.6-1.0); EST CRCL DRUG DOSING (CG) 92.83 mL/min; POTASSIUM,K 3.5 mmol/L (3.5-5.1); PROTEIN TOTAL,TP 7.6 g/dL (6.4-8.2)
== END 2023-11-08 16:23 | disposition home or self-care (01) ==
LOC: MW.ED 14:12
DX: R53.1 Weakness (principal); Z75.8 Other problems related to medical facilities and other health care; Z90.49 Acquired absence of other specified parts of digestive tract
CPT/HCPCS: 36415; 80053; 85025; 96360; 99284; J3490; J7030

== ENCOUNTER 2025-02-25 11:39 | Emergency (ER) | payer BC | END 2025-02-25 14:06 | disposition home or self-care (01) | LOC: MW.ED 11:39 | DX: O99.511 Diseases of the respiratory system complicating pregnancy, first trimester (principal); J18.9 Pneumonia, unspecified organism; Z75.3 Unavailability and inaccessibility of health-care facilities; Z3A.01 Less than 8 weeks gestation of pregnancy; Z79.899 Other long term (current) drug therapy | CPT/HCPCS: 71046; 71046-26; 99283 ==